=== PATIENT | female | born 1955 | race Hispanic/Latino ===

== ENCOUNTER → 2017-12-31 | Day surgery (SDC) | payer OTHER ==
[2017-12-28 11:22] LABS: ANION GAP 17.1 mmol/L (8-16); BLOOD UREA NITROGEN 19 mg/dL (7-26); BUN/CREATININE RATIO 24 (6-25); CALCIUM 10.1 mg/dL (8.4-10.2); CARBON DIOXIDE 24 mmol/L (22-29); CHLORIDE 103 mmol/L (98-107); EST GLOMERULAR FILTRATION RATE > 60 ML/MIN (60-); GLUCOSE 271 mg/dL (74-118); POTASSIUM 5.1 mmol/L (3.5-5.1); SODIUM 139 mmol/L (136-145)
[~2017-12-31] MED LIST: ASPIR-LOW81 MG PO; ASPIRIN ENTERI325 MG PO; ATORVASTATIN CA20 MG PO; BASAGLAR SC; BUPIVACAINE 0.5%/EPI 30 ML SDV INJ ONE; CALCIUM CARBON500 MG PO; CEFAZOLIN SOD 1 GM VIAL ONE; DEXAMETHASONE SOD PHOS INJ 4 MG/ML VIAL ONE; FENTANYL CITRATE/PF 100MCG/2 ML INJ ONE; INSULIN REGULAR, HUMAN 100 UNIT/1 ML 3ML VIAL ONE; INVOKANA PO; IRBESARTAN300 MG PO; JARDIANCE PO; KETOROLAC TROMETHAMINE 30 MG/ML VIAL ONE; LANTUS 3ML100 UNITS/ SQ; LIDOCAINE HCL 2% LOCAL INJ 5 ML SDV VIAL INJ ONE; MIDAZOLAM HCL 2 MG/2 ML VIAL ONE; MUPIROCIN 2% OINT 22 GM TUBE ONE; NOVOLOG100 UNIT/1 SQ; ONDANSETRON HCL INJ 2 MG/ML VIAL ONE; PROPOFOL IV EMULSION 10 MG/ML 20 ML VIAL ONE; SERTRALINE HCL100 MG PO; SEVOFLURANE INHAL SOLN 250 ML PEN BTL ONE; TYLENOL WITH C1 EACH PO; VICTOZA 3-0.6 MG/0.1 SQ; VITAMIN B 12 PO; VITAMIN D PO
--- NOTE | 2017-12-31 09:10 | Operative Report ---
DATE OF PROCEDURE: December 31, 2017 PREOPERATIVE DIAGNOSIS: Complications of internal fixation, left ankle. POSTOPERATIVE DIAGNOSIS: Complications of internal fixation, left ankle. PROCEDURE: Hardware removal, left ankle. MIXING TECHNICIAN: Natalio Mendez PA-C The patient was brought to the operating room for induction of anesthesia. Throughout this case, my PA's assistance was necessary for retraction of soft tissue and positioning of the extremity. This allows for efficient and technically successful execution of the operation and is considered medically necessary. INDICATIONS: The patient is a thin 62-year-old lady who is several months status post an ORIF of her left distal fibula. The hardware is prominent and bothers her with shoes because of direct pressure. The findings and options have been discussed. She would like to have the hardware removed. The risks and benefits were explained. She stated she understood and wished to proceed. DESCRIPTION OF PROCEDURE: The patient was brought to the operating room and placed under general anesthetic. She received prophylactic antibiotics in the holding area. Her left lower extremity was prepped and draped in a sterile manner. A preoperative time out was performed. The extremity was exsanguinated and the proximal tourniquet was inflated to 300 mmHg. The previous incision was opened. The hardware was carefully exposed. The lateral plate was easily removed. The screw holes were gently curetted and debrided of any prominent bone. The anterior to posterior lag screw was carefully removed. Attention was then directed towards the medial side. The single medial malleolar screw was then carefully removed after a small incision. Intraoperative x-rays confirmed complete hardware removal. The wound was irrigated. Ten mL of 0.5% Marcaine without epinephrine were used to infiltrate the incisional areas. The skin was closed with subcuticular Vicryl and interrupted nylon stitches. She was placed into a soft bandage. She was extubated and transported to the recovery room in stable condition. There was no blood loss, and all needle and sponge counts were correct. Job#: [id number]
== END | disposition home or self-care (01) ==
LOC: OR 05:04
PROVIDERS: ATTEND Specialist
DX: T84.89XA Other specified complication of internal orthopedic prosthetic devices, implants and grafts, initial encounter (principal); I10 Essential (primary) hypertension; E11.9 Type 2 diabetes mellitus without complications; Y83.8 Other surgical procedures as the cause of abnormal reaction of the patient, or of later complication, without mention of misadventure at the time of the procedure; Z01.810 Encounter for preprocedural cardiovascular examination; Z01.812 Encounter for preprocedural laboratory examination; Z79.82 Long term (current) use of aspirin; Z79.4 Long term (current) use of insulin
CPT/HCPCS: 20680; 36415 ×2; 80048; 82948; 93005; J0690; J1100; J1885; J2001; J2250; J2405; 76000

== ENCOUNTER 2018-05-26 18:31 | Emergency (ER) | payer OTHER ==
[~2018-05-26] VITALS: Ht 152.4 cm; Wt 66.2 kg
[~2018-05-26 18:31] MED LIST changes: -BUPIVACAINE 0.5%/EPI 30 ML SDV INJ ONE; -CEFAZOLIN SOD 1 GM VIAL ONE; -DEXAMETHASONE SOD PHOS INJ 4 MG/ML VIAL ONE; -FENTANYL CITRATE/PF 100MCG/2 ML INJ ONE; -INSULIN REGULAR, HUMAN 100 UNIT/1 ML 3ML VIAL ONE; -KETOROLAC TROMETHAMINE 30 MG/ML VIAL ONE; -LIDOCAINE HCL 2% LOCAL INJ 5 ML SDV VIAL INJ ONE; -MIDAZOLAM HCL 2 MG/2 ML VIAL ONE; -MUPIROCIN 2% OINT 22 GM TUBE ONE; -ONDANSETRON HCL INJ 2 MG/ML VIAL ONE; -PROPOFOL IV EMULSION 10 MG/ML 20 ML VIAL ONE; -SEVOFLURANE INHAL SOLN 250 ML PEN BTL ONE
[2018-05-26] MEDS ORDERED: HYDROCODONE/APAP 5MG-325MG TAB PO ONE (20:00)
--- NOTE | 2018-05-26 21:01 | Diagnostic Imaging Report ---
FOREARM LEFT 2 VIEW, HAND 3+ VIEWS LEFT, WRIST LEFT 2 VIEWS HISTORY: Fall, swelling. COMPARISON: None available. FINDINGS: Bones: Mildly comminuted mildly displaced fracture of the distal radial metaphysis with intra-articular extension. Osseous alignment is within normal limits. Joints: No dislocations. Soft tissues: The soft tissues appear unremarkable. IMPRESSION: Acute fracture of the distal radius with intraarticular extension. Signed by: DR. Adrian Mackay MD on 05/26/2018 8:58 PM
[2018-05-26 22:00] VITALS: BP 164/84
== END 2018-05-26 22:13 | disposition home or self-care (01) ==
LOC: ER 18:31
DX: S52.572A Other intraarticular fracture of lower end of left radius, initial encounter for closed fracture (principal); W01.0XXA Fall on same level from slipping, tripping and stumbling without subsequent striking against object, initial encounter; Y93.01 Activity, walking, marching and hiking; Y92.008 Other place in unspecified non-institutional (private) residence as the place of occurrence of the external cause; I10 Essential (primary) hypertension; E11.9 Type 2 diabetes mellitus without complications
CPT/HCPCS: 99283

== ENCOUNTER 2018-11-06 13:23 | Emergency (ER) | payer OTHER ==
[~2018-11-06] VITALS: Ht 152.4 cm; Wt 66.2 kg
[2018-11-06] MEDS ORDERED: SODIUM CHLORIDE 0.9% 1000ML 1,000 ML IV STA (13:26)
--- OUTSIDE RECORDS SUMMARY | 2018-11-06 13:26 | XMS REPORT ---
Author Author [facility] Address Unknown Phone Unavailable Care Team Providers Care Farmer Vegetable Name Role Phone Vivien WELCH Unavailable Unavailable Problems This patient has no known problems. Allergies, Adverse Reactions, Alerts This patient has no known allergies or adverse reactions. Medications This patient has no known medications. Results Test Description Test Time Test Comments Text Results Atomic Results Result Comments WRIST LEFT 2 VIEWS 2018-05-26 20:50:00 [place] [address] Patient Name: JAH JOHNSON MR #: [id number] : 1955 Age/Sex: 62/F Req #: [id number] Adm Physician: Ordered by: PAVAN BRIGGS NP Report #: [id number] Location: ER Room/Bed: Procedure: [id number] DX/WRIST LEFT 2 VIEWS Exam Date: 05/26/18 Exam Time: 2022 REPORT STATUS: Signed FOREARM LEFT 2 VIEW, HAND 3+ VIEWS LEFT, WRIST LEFT 2 VIEWS HISTORY: Fall, swelling. COMPARISON: None available. FINDINGS: Bones: Mildly comminuted mildly displaced fracture of the distal radial metaphysis with intra-articular extension. Osseous alignment is within normal limits. Joints: No dislocations. Soft tissues: The soft tissues appear unremarkable. IMPRESSION: Acute fracture of the distal radius with intraarticular extension. Signed by: DR. Adrian Cooper MD on 05/26/2018 8:58 PM Dictated By: ADRIAN COOPER MD 57 Transcribed By: SAMANTHA on 05/26/182057 COPY TO: PAVAN BRIGGS NP HAND 3+ VIEWS LEFT 2018-05-26 20:50:00 [place] [address] Patient Name: JAH JOHNSON MR #: [id number] : 1955 Age/Sex: 62/F Req #: [id number] Adm Physician: Ordered by: PAVAN BRIGGS NP Report #: [id number] Location: ER Room/Bed: Procedure: [id number] DX/HAND 3+ VIEWS LEFT Exam Date: 05/26/18 Exam Time: 2022 REPORT STATUS: Signed FOREARM LEFT 2 VIEW, HAND 3+ VIEWS LEFT, WRIST LEFT 2 VIEWS HISTORY: Fall, swelling. COMPARISON: None available. FINDINGS: Bones: Mildly comminuted mildly displaced fracture of the distal radial metaphysis with intra-articular extension. Osseous alignment is within normal limits. Joints: No dislocations. Soft tissues: The soft tissues appear unremarkable. IMPRESSION: Acute fracture of the distal radius with intraarticular extension. Signed by: DR. Adrian Cooper MD on 05/26/2018 8:58 PM Dictated By: ADRIAN COOPER MD 57 Transcribed By: SAMANTHA on 05/26/182057 COPY TO: PAVAN BRIGGS NP FOREARM LEFT 2 VIEW 2018-05-26 20:50:00 [place] [address] Patient Name: JAH JOHNSON MR #: [id number] : 1955 Age/Sex: 62/F Req #: [id number] Adm Physician: Ordered by: PAVAN BRIGGS NP Report #: [id number] Location: ER Room/Bed: Procedure: [id number] DX/FOREARM LEFT 2 VIEW Exam Date: 05/26/18 Exam Time: 2022 REPORT STATUS: Signed FOREARM LEFT 2 VIEW, HAND 3+ VIEWS LEFT, WRIST LEFT 2 VIEWS HISTORY: Fall, swelling. COMPARISON: None available. FINDINGS: Bones: Mildly comminuted mildly displaced fracture of the distal radial metaphysis with intra-articular extension. Osseous alignment is within normal limits. Joints: No dislocations. Soft tissues: The soft tissues appear unremarkable.
--- OUTSIDE RECORDS SUMMARY | 2018-11-06 13:26 | XMS REPORT | Continuity of Care Document ---
Author Author [facility] Interface Address Unknown Phone Unavailable Problems Problem Status Onset Date Classification Date Reported Comments Source Medications Medication Details Route Status Patient Instructions Ordering Provider Order Date Source Acetaminophen With Codeine (Tylenol With Codeine #3 Tablet) 1 Each Tablet, 300 Mg Oral As Needed Active 12/28/2017 [facility] Insulin Glargine (Lantus 3ML Pen) 100 Units/1 Ml Inj, 33 Units Sub-Q Bedtime Active 12/28/2017 [facility] Jardiance , 25 Mg Oral Daily Active 12/28/2017 [facility] Aspirin (Aspirin Enteric Coated) 325 Mg Tabec Daily Active [facility] Atorvastatin Calcium 20 Mg Tablet Bedtime Active [facility] Basaglar Bedtime Active [facility] Calcium Carbonate 500 Mg Tablet Daily Active [facility] Insulin Aspart (Novolog) 100 Unit/1 Ml Cartridge Three Times A Day Active [facility] Invokana Daily Active [facility] Irbesartan 300 Mg Tablet Daily Active [facility] Liraglutide (Victoza 3-Santy) 0.6 Mg/0.1 Ml Pen.injctr Daily Active [facility] Sertraline Hcl 100 Mg Tablet Bedtime Active [facility] Vitamin B 12 Daily Active [facility] Vitamin D Daily Active [facility] Allergies, Adverse Reactions, Alerts Substance Category Reaction Severity Reaction type Status Date Reported Comments Source Immunizations Immunization Date Given Site Status Last Updated Comments Source Results Order Name Results Value Reference Range Date Interpretation Comments Source Capillary blood glucose measurement by glucometer (mass/volume) 134 70 - 120 12/31/2017 [facility] Serum or plasma sodium measurement (moles/volume) 139 136 - 145 12/28/2017 [facility] Serum or plasma potassium measurement (moles/volume) 5.1 3.5 - 5.1 12/28/2017 [facility] Serum or plasma chloride measurement (moles/volume) 103 98 - 107 12/28/2017 [facility] Serum or plasma carbon dioxide, total measurement (moles/volume) 24 22 - 29 12/28/2017 [facility] Serum or plasma anion gap 17.1 8 - 16 12/28/2017 [facility] Serum or plasma urea nitrogen measurement (mass/volume) 19 7 - 26 12/28/2017 [facility] Serum or plasma creatinine measurement (mass/volume) 0.80 0.57 - 1.11 12/28/2017 [facility] Serum or plasma urea nitrogen/creatinine mass ratio 24 6 - 25 12/28/2017 [facility] Estimated glomerular filtration rate (GFR) determination > 60 60 12/28/2017 [facility] Glucose measurement 271 74 - 118 12/28/2017 [facility] Serum or plasma calcium measurement (mass/volume) 10.1 8.4 - 10.2 12/28/2017 [facility] Vital Signs Vital Sign Value Date Comments Source Encounters Location Location Details Encounter Type Encounter Number Reason For Visit Attending Provider ADM Date DC Date Status Source Registered [facility] Day [facility] [id number] ROMARIO OTERO MD 12/31/2017 [facility] Registered Emergency Room [id number] CINDY WELCH MD 05/26/2018 [facility] Procedures Procedure Code Date Perfomer Comments Source REMOVAL OF SUPPORT IMPLANT [id number] 12/31/2017 BRANDEN [facility]
[2018-11-06] MEDS ORDERED: INSULIN REGULAR, HUMAN 100 UNIT/1 ML 3ML VIAL SQ ONE (13:30)
[2018-11-06] MEDS ORDERED: INSULIN REGULAR, HUMAN 100 UNIT/1 ML 3ML VIAL IV ONE (13:30)
[2018-11-06 14:08] LABS: BASOPHILS % 0.4 % (0.0-1.0); EOSINOPHILS # (AUTO) 0.1 (0.0-0.4); EOSINOPHILS % 1.3 % (0.0-6.0); HEMATOCRIT 43.3 % (34.2-44.1); HEMOGLOBIN 15.1 g/dL (12.0-16.0); LYMPHOCYTES # (AUTO) 1.2 (1.0-3.2); LYMPHOCYTES % 22.8 % (18.0-39.1); MEAN CORPUSCULAR HEMOGLOBIN 30.9 pg (28-32); MEAN CORPUSCULAR HGB CONC 34.9 g/dL (31-35); MEAN CORPUSCULAR VOLUME 88.5 fL (81-99); MONOCYTES # (AUTO) 0.4 (0.2-0.8); MONOCYTES % 8.1 % (4.4-11.3); NEUTROPHILS # (AUTO) 3.7 (2.1-6.9); NEUTROPHILS % 66.8 % (38.7-80.0); PLATELET COUNT 201 x10e3/uL (140-360); RED BLOOD COUNT 4.89 x10e6/uL (3.6-5.1); RED CELL DISTRIBUTION WIDTH 12.7 % (11.7-14.4)
[2018-11-06 14:12] LABS: INR 0.88; PROTHROMBIN TIME 12.4 seconds (11.9-14.5)
[2018-11-06 14:13] LABS: PARTIAL THROMBOPLASTIN TIME 29.2 seconds (23.8-35.5)
[2018-11-06 14:15] LABS: BILIRUBIN,URINE NEGATIVE (NEGATIVE); CLARITY,URINE SL CLOUDY (CLEAR); COLOR,URINE YELLOW (YELLOW); KETONES,URINE NEGATIVE (NEGATIVE); LEUKOCYTE ESTERASE ,URINE NEGATIVE (NEGATIVE); NITRITE,URINE NEGATIVE (NEGATIVE); PROTEIN,URINE DIPSTICK NEGATIVE (NEGATIVE); URINE UROBILINOGEN 0.2 mg/dL (0.2 - 1)
[2018-11-06 14:16] LABS: AMYLASE 42 U/L (25-125); CREATINE KINASE 76 IU/L (29-168); LIPASE 46 U/L (8-78)
[2018-11-06 14:23] LABS: BACTERIA,URINE FEW /HPF
[2018-11-06 14:40] LABS: ALANINE AMINOTRANSFERASE 27 IU/L (0-55); ALBUMIN 4.5 g/dL (3.5-5.0); ALBUMIN/GLOBULIN RATIO 1.6 (0.8-2.0); ALKALINE PHOSPHATASE 113 IU/L (40-150); ANION GAP 12.8 mmol/L (8-16); BLOOD UREA NITROGEN 19 mg/dL (7-26); BUN/CREATININE RATIO 27 (6-25); CALCIUM 10.3 mg/dL (8.4-10.2); CARBON DIOXIDE 26 mmol/L (22-29); CHLORIDE 105 mmol/L (98-107); CREATININE, SERUM 0.71 mg/dL (0.57-1.11); EST GLOMERULAR FILTRATION RATE > 60 ML/MIN (60-); GLUCOSE 112 mg/dL (74-118); POTASSIUM 3.8 mmol/L (3.5-5.1); SODIUM 140 mmol/L (136-145)
--- NOTE | 2018-11-06 15:52 | Diagnostic Imaging Report ---
EXAMINATION: CHEST 2 VIEWS INDICATION: Chest pain, hypertension. COMPARISON: None FINDINGS: TUBES and LINES: None. LUNGS: Lungs are moderately inflated. There are mild patchy bibasilar opacities, likely atelectasis. There is linear subsegmental atelectasis in the bilateral lower lungs. There is no evidence of pneumonia or pulmonary edema. PLEURA: No pleural effusion or pneumothorax. HEART AND MEDIASTINUM: The cardiomediastinal silhouette is unremarkable. There are atherosclerotic calcifications within the aorta. BONES AND SOFT TISSUES: No acute osseous abnormality. UPPER ABDOMEN: No free air under the diaphragm. IMPRESSION: No acute radiographic abnormality. Signed by: Dr. Mamadou Valentin MD on 11/06/2018 3:48 PM
[2018-11-06] MEDS ORDERED: TRAMADOL HCL 50 MG TAB PO ONE (18:15)
--- NOTE | 2018-11-06 18:46 | Diagnostic Imaging Report ---
History:Headaches, history of aneurysm Comparison studies: None Technique: Axial images were obtained from the skull base to the vertex. Coronal and sagittal images reconstructed from the axial data. Dose modulation, iterative reconstruction, and/or weight based adjustment of the mA/kV was utilized to reduce the radiation dose to as low as reasonably achievable. Intravenous contrast: None Findings: Scalp/skull: No abnormalities. Extra-axial spaces: No masses. No fluid collections. Brain sulci: Mildly prominent. Ventricles: Mild compensatory dilatation. No hydrocephalus. Parenchyma: Subtle hypodensities in the left frontal white matter are small vessel ischemic changes. No masses, hemorrhage, acute or chronic cortical vascular insults. Sellar/suprasellar region: No abnormalities. Craniocervical junction: Patent foramen magnum. No Chiari one malformation. Incidental findings: Atherosclerotic calcifications in the carotid siphons . Mucosal thickening in both sphenoid sinuses. Impression: 1. No acute abnormalities. 2. Metallic coils in the periophthalmic region are consistent with patient's history of a treated aneurysm. Signed by: Dr. Diony Lubin M.D. on 11/06/2018 6:43 PM
--- NOTE | 2018-11-06 19:12 | NUR ---
Walking rounds with SILVINO Paniagua. Patient in no distress.
[2018-11-06 19:14] LABS: CREATINE KINASE 55 IU/L (29-168)
[2018-11-06 19:48] VITALS: BP 156/97
== END 2018-11-06 20:00 | disposition home or self-care (01) ==
LOC: ER 13:23
DX: R53.1 Weakness (principal); R42 Dizziness and giddiness; I10 Essential (primary) hypertension; E11.9 Type 2 diabetes mellitus without complications; F32.9 Major depressive disorder, single episode, unspecified
CPT/HCPCS: 36415; 70450; 71046; 80053; 81001; 82150; 82550; 82553; 83690; 84484; 85025; 85610; 85730; 87086; 93005; 99284

== ENCOUNTER → 2019-12-16 | Day surgery (SDC) | payer OTHER ==
[~2019-12-16] MED LIST changes: +FENTANYL CITRATE/PF 100MCG/2 ML INJ ONE; +METHIMAZOLE5 MG PO; +MIDAZOLAM HCL 2 MG/2 ML VIAL ONE; +OR PHACO EYE KIT ONE; +PREOP PHACO EYE KIT ONE
[2019-12-16 11:31] VITALS: BP 100/82
== END | disposition home or self-care (01) ==
LOC: OR 07:58
PROVIDERS: ATTEND Ophthalmology
DX: H25.12 Age-related nuclear cataract, left eye (principal); E11.9 Type 2 diabetes mellitus without complications; I10 Essential (primary) hypertension; Z01.810 Encounter for preprocedural cardiovascular examination; Z01.812 Encounter for preprocedural laboratory examination; Z11.59 Encounter for screening for other viral diseases; Z79.82 Long term (current) use of aspirin; Z79.84 Long term (current) use of oral hypoglycemic drugs; Z79.4 Long term (current) use of insulin
CPT/HCPCS: 36415; 82948; 87635; 93005

== ENCOUNTER → 2020-01-06 | Day surgery (SDC) | payer OTHER ==
[~2020-01-06] MED LIST changes: -FENTANYL CITRATE/PF 100MCG/2 ML INJ ONE; -MIDAZOLAM HCL 2 MG/2 ML VIAL ONE
[2020-01-06 14:55] VITALS: BP 109/63
== END | disposition home or self-care (01) ==
LOC: OR 11:09
PROVIDERS: ATTEND Ophthalmology
DX: H25.11 Age-related nuclear cataract, right eye (principal); I10 Essential (primary) hypertension; E11.9 Type 2 diabetes mellitus without complications; Z01.812 Encounter for preprocedural laboratory examination; Z11.59 Encounter for screening for other viral diseases; Z79.82 Long term (current) use of aspirin; Z79.4 Long term (current) use of insulin; Z79.84 Long term (current) use of oral hypoglycemic drugs
CPT/HCPCS: 36415; 66984; 82948; 87635; V2632